=== PATIENT | male | born 1990 | race Caucasian/White ===

== ENCOUNTER 2020-08-09 20:14 | Emergency (ER) | payer OTHER, SELFPAY ==
[2020-08-09 20:44] VITALS: BP 151/86; PULSE 102; RESP 18; TEMP 36.9; O2SAT 100
--- NOTE | 2020-08-09 21:57 | ECG_ITS ---
Measurements Intervals [place] Rate: 90 P: 66 [place]: 184 QRS: 4 QRSD: 96 T: 23 QT: 339 QTc: 416 Interpretive Statements SINUS RHYTHM INCOMPLETE RIGHT BUNDLE BRANCH BLOCK MINIMAL Q WAVES- HIGH LATERAL LEADS BORDERLINE ECG Electronically Signed On 08-10-2020 10:56:57 CDT by Clifford Moreira D.O.
--- NOTE | 2020-08-09 22:05 | ED.GENADULT ---
HPI - General Adult General Chief complaint: Anxiety Stated complaint: anxiety Time Seen by Provider: 08/09/20 21:45 Source: patient Mode of arrival: ambulatory Limitations: no limitations History of Present Illness HPI narrative: This patient is a 30 year old male who presents for evaluation of possible anxiety attack. He states earlier today he has weird feeling to back of head . He states he had feeling of when your feet go to sleep to the back of his head. He also reports having episode of becoming warm, flushed with heart racing. He reports he feels better but his heart rate is still evaluated. He denies headache, blurred vision, chest pain, sob, nausea, vomiting, diarrhea or focal weakness. HE took someone else's xanax during the episode. Related Data Allergies Allergy/AdvReac Type Severity Reaction Status Date / Time No Known Allergies Allergy Verified 08/10/11 10:35 Review of Systems Review of Systems: All systems reviewed & are unremarkable except as noted in HPI and below Constitutional: Constitutional: Denies chills and Denies fever(s) Eyes: Eyes: Denies change in vision and Denies photophobia Cardiovascular: Cardiovascular: Denies chest pain and Reports rapid heart rate Respiratory: Respiratory: Denies chest congestion, Denies cough, Denies dyspnea and Denies wheezing Gastrointestinal: Gastrointestinal: Denies abdominal pain, Denies diarrhea, Denies nausea and Denies vomiting Neurologic: Denies vertigo, Denies syncope, Denies headache(s) and Denies focal weakness Psychiatric: Psychiatric: Reports anxiety PMFSH Past Medical History Medical History (Updated 08/10/20 @ 00:12 by Meggan Cormier MD) Patient denies medical problems Surgical History Surgical History (Updated 08/09/20 @ 22:06 by Meggan Cormier MD) No significant past surgical history Social History Social History (Updated 08/09/20 @ 22:06 by Meggan Cormier MD) Smoking status: Never smoker Alcohol use details: occasionally Substance use: never Gender identity (if verbalized by the patient): Male Exam Const: General: no acute distress and alert Nutritional Appearance: obese Orientation/consciousness: patient oriented x3 HENMT: Head: normocephalic and atraumatic Ears: TM's normal bilaterally Face and sinus: face symmetric Mouth: Yes Normal oral and palatal mucosa present, Yes lip normal, Yes oropharynx normal and Yes moist mucous membranes Teeth and gingiva: fair dentition Throat: posterior oropharynx normal, tonsils normal and uvula midline Eyes: EOM: EOMs intact bilaterally Chest: Chest palpation & inspection: normal inspection of the chest Resp: Effort & Inspection: normal respiratory effort and no retractions Auscultation: clear to auscultation bilaterally Cardio: Rate: regular rate Rhythm: regular rhythm Heart sounds: no murmurs GI: GI Palp: Yes Soft to palpation, No Tenderness to palpation present (GI), No Guarding due to palpation present (GI) and No Rigid due to palpation Skin: General skin exam: normal color Rashes: no rashes Neuro: General: patient oriented x3 and moves all extremities Extrem: General: no pedal edema Psych: Mental Status: mental status grossly normal Affect: normal affect Course Reevaluation(s) Reevaluation #1: I have discussed with patient that labs are unremarkable other than leukocytosis which may be from dental infection Date: 08/10/20 Time: 00:09 Vital Signs Vital signs: Vital Signs Temperature 98.4 F 08/09/20 20:44 Pulse Rate 102 H 08/09/20 20:44 Respiratory Rate 18 08/09/20 20:44 Blood Pressure 151/86 H 08/09/20 20:44 Pulse Oximetry 100 08/09/20 20:44 Temperature 98.4 F 08/09/20 20:44 Pulse Rate 68 08/10/20 00:21 Respiratory Rate 16 08/10/20 00:21 Blood Pressure 128/72 08/10/20 00:21 Pulse Oximetry 99 08/10/20 00:21 Medical Decision Making Vital Signs Vital Signs: Vital Signs Temperature 98.
[2020-08-09 22:18] LABS: Basophils Absolute Auto 0.1 K/mm3 (0.0-0.1); Basophils Percent Auto 0.8 % (0.2-1.2); Eosinophils Absolute Auto 0.4 K/mm3 (0-0.3); Eosinophils Percent Auto 3.2 % (0-4.4); Hemoglobin 16.1 g/dL (14.0-18.0); Immature Granulocyte Absolute 0.12 K/mm3 (0.00-0.031); Lymphocytes Absolute Auto 2.35 K/mm3 (0.9-3.2); Lymphocytes Percent Auto 19.6 % (18.3-44.2); Mean Corpuscular Hemoglobin 29.5 pg (26-34); Mean Corpuscular Volume 84.2 fl (80-100); Mean Platelet Volume 10.2 fl (7.4-10.4); Monocytes Absolute Auto 0.5 K/mm3 (0.1-0.6); Monocytes Percent Auto 4.4 % (2.6-8.5); Neutrophils Absolute Auto 8.5 K/mm3 (1.3-6.7); Platelet Count Result 252 k/mm3 (150-375); Red Blood Count 5.46 M/mm3 (4.6-6.20); Red Cell Distribution Width 13.6 % (11.5-14.5)
[2020-08-09 22:27] LABS: INR 0.9; Prothrombin Time 12.2 Seconds (11.1-14.7)
[2020-08-09 22:28] LABS: Partial Thromboplastin Time 26.1 SECONDS (22.3-36.8)
[2020-08-09 22:30] LABS: Lactic Acid Reflex 1.7 mmol/L (0.7-2.1)
[2020-08-09 22:32] LABS: Alanine Aminotransferase 52 U/L (4-50); Albumin Level 4.8 g/dL (3.5-5.1); Alkaline Phosphatase 80 U/L (38-126); Anion Gap 12 mmol/L (8-16); Aspartate Amino Transferase 36 U/L (17-59); Bilirubin,Total 0.5 mg/dL (0.2-1.3); Blood Urea Nitrogen 14 mg/dL (9-20); CRP 0.8 mg/dL (<1.0); Calcium 9.7 mg/dL (8.4-10.2); Carbon Dioxide 25 mmol/L (22-30); Chloride 103 mmol/L (98-107); Estimated CRCL calculation 138 ml/min; Estimated Glomerular Filt Rate > 60; Glucose 128 mg/dL (75-110); Magnesium 2.3 mg/dL (1.6-2.3); Potassium 4.2 mmol/L (3.4-5.0); Sodium 140 mmol/L (137-145)
[2020-08-09 22:55] VITALS: BP 132/57; PULSE 92
[2020-08-09 22:57] VITALS: BP 118/69; PULSE 84
[2020-08-09 22:58] VITALS: BP 119/67; PULSE 82
[2020-08-10 00:21] VITALS: BP 128/72; PULSE 68; RESP 16; O2SAT 99
== END 2020-08-10 00:22 | disposition home or self-care (01) ==
PROVIDERS: Emergency Provider General Practice
DX: D72.829 Elevated white blood cell count, unspecified (principal); R00.0 Tachycardia, unspecified
CPT/HCPCS: 36415; 80053; 83605; 83735; 84443; 85025; 85380; 85610; 85730; 86140; 93005; 99283